=== PATIENT | male | born 1990 | race Asian ===

== ENCOUNTER 2018-01-09 03:00 | Emergency (ER) | payer OTHER ==
[~2018-01-09] VITALS: Ht 180.3 cm; Wt 101.6 kg
[2018-01-09] MEDS ORDERED: FAMOTIDINE 20 MG/2 ML VIAL IV ONE (03:45)
[2018-01-09] MEDS ORDERED: SODIUM CHLORIDE 0.9% 1000ML 1,000 ML ONE (03:45)
[2018-01-09] MEDS ORDERED: ONDANSETRON HCL 4 MG ORAL DISINTEGRATING TAB SL ONE (03:45)
[2018-01-09] MEDS ORDERED: PANTOPRAZOLE 40 MG 10ML VIAL IV ONE (03:45)
[2018-01-09] MEDS ORDERED: PEPCID20 MG PO (04:44)
[2018-01-09] MEDS ORDERED: ZOFRAN ODT4 MG SL (04:44)
== END 2018-01-09 04:55 | disposition home or self-care (01) ==
LOC: FSED 03:00
DX: R10.13 Epigastric pain (principal); R11.2 Nausea with vomiting, unspecified; K29.00 Acute gastritis without bleeding
CPT/HCPCS: 80048; 80076; 81003; 85025; 99283; J7030